=== PATIENT | female | born 1970 ===

== ENCOUNTER 2021-06-23 11:45 | Inpatient (IN) | payer OTHER ==
[~2021-06-23] VITALS: Ht 172.7 cm; Wt 70.3 kg
[~2021-06-23 11:45] MED LIST: CRESTOR5 MG PO; [UNRECOGNIZED DRUG - OTHER]
[2021-06-28] MEDS ORDERED: ACETAMINOPHEN500 M2 PO (09:23)
[2021-06-28] MEDS ORDERED: ACID REDUCER20 M1 PO (09:23)
[2021-06-28] MEDS ORDERED: INTESTINEX680 M1 PO (09:23)
== END 2021-06-28 10:32 | disposition home or self-care (01) | DRG 828 ==
LOC: O/R 06-25 07:12 → SURH 06-25 11:45
PROVIDERS: Obstetrics & Gynecology Gynecologic Oncology; ADMIT Surgery; ATTEND Surgery
PROC: 0UT64ZZ Resection of Left Fallopian Tube, Percutaneous Endoscopic Approach (ICD-10-PCS; 2021-06-25)
PROC: 0UT14ZZ Resection of Left Ovary, Percutaneous Endoscopic Approach (ICD-10-PCS; 2021-06-25)
PROC: 0DTF4ZZ Resection of Right Large Intestine, Percutaneous Endoscopic Approach (ICD-10-PCS; principal; 2021-06-25 10:00)
PROC: 07BC4ZZ Excision of Pelvis Lymphatic, Percutaneous Endoscopic Approach (ICD-10-PCS; 2021-06-25 10:00)
DX: C7B.8 Other secondary neuroendocrine tumors (principal); N83.292 Other ovarian cyst, left side; R59.0 Localized enlarged lymph nodes